=== PATIENT | female | born 1935 | race Caucasian/White ===

== ENCOUNTER 2021-03-02 14:50 | Inpatient (IN) | payer MEDICARE ==
--- NOTE | 2021-03-02 16:53 | NUR ---
Pt arrived to medical unit room 353 by EMS around 1600. A&Ox4. Oriented pt to room and admission assessment complete. Unable to complete med rec at this time as pt is unaware of home medications except for Eliquis, does not know dosage of eliquis however. Attempted to call pt's daughter Delia for med list. No answer at this time. Will try again later.
[2021-03-02 17:00] VITALS: BP 106/42; PULSE 56; TEMP 97.6
[2021-03-02] MEDS ORDERED: ELIQUIS 5MG PO (17:36)
[2021-03-02] MEDS ORDERED: ROXICODONE 55 MG/TAB PO ×2 (17:37→17:38)
[2021-03-02] MEDS ORDERED: MIACALCIN NASA3.7 ML NS (17:39)
[2021-03-02] MEDS ORDERED: TYLENOL 325MG325 MG PO (17:40)
[2021-03-02] MEDS ORDERED: PACERONE200 MG PO (17:41)
[2021-03-02] MEDS ORDERED: ASPIRIN 81M81 MG/TA2 PO (17:41)
[2021-03-02] MEDS ORDERED: LIPITOR 80MG80 MG PO (17:41)
[2021-03-02] MEDS ORDERED: CALCIUM 600MG+D1 TAB PO (17:42)
[2021-03-02] MEDS ORDERED: FERRO-TIME325 MG PO (17:43)
[2021-03-02] MEDS ORDERED: SYNTHROID0.075 MG/T PO (17:43)
[2021-03-02] MEDS ORDERED: TOPROL XL 50MG50 MG PO (17:44)
[2021-03-02] MEDS ORDERED: DINO-LIFE1 CTB PO (17:44)
[2021-03-02] MEDS ORDERED: K-TAB20 PO (17:45)
[2021-03-02] MEDS ORDERED: DEMADEX 20MG20 M1 PO (17:46)
[2021-03-02] MEDS ORDERED: SENOKOT S 50 MG1 TAB PO (17:46)
[2021-03-02] MEDS ORDERED: VITAMIN C500 MG PO (17:46)
[2021-03-02] MEDS ORDERED: NATURAL E400 IU PO (17:47)
--- NOTE | 2021-03-02 18:17 | NUR ---
Pt's daughter brought updated med/allergy list. Med rec updated. Daughter Delia would like to be called during morning rounds. Passed this on to cage shift manager RNRohith Lin to bring in copy of [facility] paperwork tomorrow afternoon.
[2021-03-02 20:04] VITALS: BP 109/41; PULSE 55; TEMP 97.9
[2021-03-02 21:12] LABS: BASO % 0.3 % (0.0-2.0); EOS # 0.1 (0.0-0.7); EOS % 1.3 % (0-4.0); GRAN # 7.8 (1.4-6.5); GRAN % 72.4 % (42.2-75.2); LYMPH # 1.8 (1.2-3.4); LYMPH % 16.4 % (20.0-51.0); MEAN CELL VOLUME 96 fl (80.0-100.0); MEAN CORPUSCULAR HGB CONC 31 g/dl (33.0-37.0); MEAN PLATELET VOLUME 9.5 fl (7.4-10.4); MONO # 0.9 (0.1-0.6); MONO % 8.6 % (1.7-9.3); PLATELET COUNT 208 K/mm3 (130-400); RED BLOOD COUNT 1.59 M/mm3 (4.10-5.30); REDCELL DISTRIBUTION WIDTH-CV 17.7 % (11.5-14.5)
[2021-03-02 21:23] LABS: CALCIUM 8.8 mg/dL (8.4-10.2); CREATININE, serum 2.95 (0.52-1.25)
[2021-03-02 21:37] LABS: IRON,SERUM 79 ug/dL (35-150)
[2021-03-02 21:40] LABS: HEMATOCRIT 15.2 % (37.0-47.0); HEMOGLOBIN 4.7 g/dl (12.5-16.0); MEAN CORPUSCULAR HEMOGLOBIN 30 pg (27.0-31.0)
[2021-03-02 21:46] LABS: TOTAL IRON BINDING CAPACITY 332 ug/dL (265-497)
--- NOTE | 2021-03-02 23:36 | NUR ---
PT BLOOD ADMINISTRATION BEGINS AT 60ML/HR TO RIGHT AC IV. THIS NURSE REVIEWED S/S TO REPORT TO NURSE. PT VERBALIZES UNDERSTANDING. THIS NURSE WILL REMAIN WITH PT FOR FIRST 15MIN.
--- NOTE | 2021-03-02 23:49 | NUR ---
PT TOLERATING BLOOD ADMINSTRATION WELL. BLOOD INFUSING AT 200ML/HR TO RIGHT IV. THIS NURSE WILL CONTINUE TO MONITOR PT. BED ALARM ON. BED LOW. CALL LIGHT WITHIN REACH.
[2021-03-03] VITALS (12 sets, daily range): BP systolic 90–155; BP diastolic 34–71; PULSE 50–65; TEMP 97.5–98.5
--- NOTE | 2021-03-03 01:19 | NUR ---
PT COMPLETED FIRST BLOOD ADMINISTRATION UNIT FREE OF S/S. THIS NURSE WILL CONTINUE TO ADMINISTER 2ND UNIT OF BLOOD AND REITERATE TO PT S/S TO REPORT.
--- NOTE | 2021-03-03 01:39 | NUR ---
SECOND UNIT OF BLOOD ADMINISTRATION BEGINS AT 0139, PT REMAINS A/OXO4 AND AWARE OF WHICH S/S TO REPORT TO NURSE. PT CONTINUES TO RUN SOFT BP'S. NURSE WILL REMAIN WITH PT FIRST 15 MIN.
--- NOTE | 2021-03-03 02:00 | NUR ---
PT TOLERATING 2ND UNIT OF BLOOD ADMINISTRATION WELL, BLOOD ADMINISTERING TO LEFT AC AT 200ML/HR. NURSE WILL CONTINUE TO F/U
--- NOTE | 2021-03-03 02:29 | NUR ---
AT 0230 03/03 THIS NURSE FAXED OVER MEDICAL RECORDS REQUESTS TO [facility]. FAX SHEET PLACED IN PT'S CHART.
--- NOTE | 2021-03-03 03:25 | NUR ---
PT TOLERATED 2ND UNIT OF BLOOD WITHOUT S/S. NURSE WILL CONTINUE TO MONITOR PT. CALL LIGHT WITHIN REACH.
[2021-03-03 05:35] LABS: BASO # 0.1 (0.0-0.2); BASO % 0.5 % (0.0-2.0); EOS # 0.1 (0.0-0.7); EOS % 1.5 % (0-4.0); GRAN # 6.8 (1.4-6.5); GRAN % 73.1 % (42.2-75.2); LYMPH # 1.5 (1.2-3.4); LYMPH % 16.1 % (20.0-51.0); MEAN CELL VOLUME 94 fl (80.0-100.0); MEAN CORPUSCULAR HGB CONC 32 g/dl (33.0-37.0); MEAN PLATELET VOLUME 9.2 fl (7.4-10.4); MONO # 0.7 (0.1-0.6); MONO % 7.9 % (1.7-9.3); PLATELET COUNT 210 K/mm3 (130-400); RED BLOOD COUNT 2.75 M/mm3 (4.10-5.30); REDCELL DISTRIBUTION WIDTH-CV 15.9 % (11.5-14.5)
[2021-03-03 05:37] LABS: HEMATOCRIT 25.9 % (37.0-47.0); HEMOGLOBIN 8.3 g/dl (12.5-16.0); MEAN CORPUSCULAR HEMOGLOBIN 30 pg (27.0-31.0)
[2021-03-03 05:45] LABS: CREATININE, serum 2.88 (0.52-1.25); MAGNESIUM 2.3 mg/dL (1.6-2.3); POTASSIUM 4.1 mmol/L (3.4-5.0)
[2021-03-03 06:14] LABS: TROPONIN-I 6 HR POST INITIAL 0.111 ng/mL (0.000-0.034)
--- NOTE | 2021-03-03 11:03 | NUR ---
SHIFT ASSESSMENT PREFORMED. SCHEDULED MEDICATIONS NOT GIVEN DUE TO EGD SCHEDULED AT 1300. CONSENT SIGNED AND ON THE CHART. PATIENT CONTINUES TO HAVE BLACK TARRY STOOLS. PATIENT DENIES ANY PAIN, DISCOMFORT, OR FURTHER NEEDS AT THIS TIME. VSS. PATIENT A&O. CALL LIGHT IN REACH. FALL PRECAUTIONS IN PLACE.
--- NOTE | 2021-03-03 11:05 | NUR ---
First visit from the obstetrics scrub nurse. No needs right now.
[2021-03-03 11:53] LABS: COLLECTION METHOD CLEAN CATCH
[2021-03-03 12:02] LABS: PH 5 (5-8); SQUAMOUS EPITHELIAL 0-2 /hpf; URINE APPEARANCE Hazy; URINE BACTERIA Rare /hpf; URINE BILIRUBIN Negative (NEGATIVE); URINE BLOOD Negative (NEGATIVE); URINE COLOR Yellow; URINE GLUCOSE Negative (NEGATIVE); URINE KETONE Negative (NEGATIVE); URINE LEUKOCYTE ESTERASE 2+ (NEGATIVE); URINE NITRATE Negative (NEGATIVE); URINE PROTEIN(semi-quant) Negative (NEGATIVE); URINE RBC 0-2 /hpf; URINE UROBILINOGEN Negative (NEGATIVE)
--- NOTE | 2021-03-03 16:27 | NUR ---
group home worker met with patient to discuss discharge plan. Patient lives at home alone in [place] and reports to being independent on all activities of daily living. Patient uses a walker to get mobilize. [facility] is Dr[facility] Patient's daughter Delia at bedside. Neither have concerns with the patient returning back home. Patient reports that she does have a DPOA-HC established and that the hospital should have it. *Discharge Plan:Home*
--- NOTE | 2021-03-03 19:24 | NUR ---
PATIENT HAS HAD AN OK DAY. EGD COMPLETED, PATIENT TOLERATED WELL. DISCUSSED WITH PHARMACY THE USE OF ROCHEPHIN ON PATIENT, PHARMACY APPROVED USE. PATIENT HAS NOT C/O OF ANY PAIN, DISCOMFORT, OR FURTHER NEEDS AT THIS TIME. CALL LIGHT IN REACH. FALL PRECAUTIONS IN PLACE. VSS.
[2021-03-03 20:21] LABS: CREATININE, serum 2.43 (0.52-1.25); FRACTIONAL EXCRETION OF NA+ 1.5 %
--- NOTE | 2021-03-03 22:11 | NUR ---
Shift assessment completed. Patient alert and oriented. Patient reports feeling very tired. Patient denies pain, SOB, N/V, or diarrhea. Assisted patient to the bathroom to void. Patient ambulates with a walker. Stand-by assist provided. Scheduled meds given per MAR. Call light within reach. Fall precaution maintained.
[2021-03-04 00:11] VITALS: BP 99/40; PULSE 57; TEMP 98
[2021-03-04 03:42] VITALS: BP 124/45; PULSE 63; TEMP 97.7
--- NOTE | 2021-03-04 05:46 | NUR ---
Patient had black tarry stools x3 over the night. Call light within reach. Will continue to monitor.
[2021-03-04 07:40] VITALS: BP 113/37; PULSE 62; TEMP 98.3
[2021-03-04 07:44] LABS: BASO # 0.1 (0.0-0.2); BASO % 0.5 % (0.0-2.0); EOS # 0.4 (0.0-0.7); GRAN # 7.6 (1.4-6.5); GRAN % 75.5 % (42.2-75.2); LYMPH # 0.8 (1.2-3.4); LYMPH % 8.4 % (20.0-51.0); MEAN CELL VOLUME 97 fl (80.0-100.0); MEAN CORPUSCULAR HGB CONC 31 g/dl (33.0-37.0); MEAN PLATELET VOLUME 9.2 fl (7.4-10.4); MONO # 1.1 (0.1-0.6); MONO % 10.9 % (1.7-9.3); PLATELET COUNT 198 K/mm3 (130-400); RED BLOOD COUNT 2.33 M/mm3 (4.10-5.30); REDCELL DISTRIBUTION WIDTH-CV 16.6 % (11.5-14.5)
[2021-03-04 07:46] LABS: HEMATOCRIT 22.6 % (37.0-47.0); MEAN CORPUSCULAR HEMOGLOBIN 30 pg (27.0-31.0)
[2021-03-04 07:58] LABS: CALCIUM 8.4 mg/dL (8.4-10.2); CREATININE, serum 2.27 (0.52-1.25); MAGNESIUM 2.1 mg/dL (1.6-2.3); POTASSIUM 3.6 mmol/L (3.4-5.0)
[2021-03-04 08:25] LABS: TROPONIN-I 0.073 ng/mL (0.000-0.035)
[2021-03-04 11:48] VITALS: BP 131/47; PULSE 64; TEMP 98.5
--- NOTE | 2021-03-04 16:22 | NUR ---
animal care service worker met with patient and left message for daughter, Delia, to call regarding physical therapy recommending home health. Patient continues plans to return home upon discharge. Patient uses a walker at home.
[2021-03-04 16:31] LABS: HEMATOCRIT 23.1 % (37.0-47.0); HEMOGLOBIN 7.3 g/dl (12.5-16.0)
[2021-03-04 16:58] VITALS: BP 133/43; PULSE 64; TEMP 97.7
--- NOTE | 2021-03-04 20:04 | NUR ---
PATIENT HAS HAD AN OK DAY. 2 EPISODES OF BLOODY STOOLS NOTED. HGB THIS AM WAS 7.0, ORDERS FOR A BLOOD TRANSFUSION PLACED. CONSENT SIGNED AND ON THE CHART. PATIENT TO HAVE A COLONOSCOPY IN THE AM. BOWEL PREP STARTED. PATIENT HAS DENIED ANY PAIN, DISCOMFORT, OR FURTHER NEEDS AT THIS TIME VSS. CALL LIGHT IN REACH. FALL PRECAUTIONS IN PLACE.
[2021-03-04 22:29] LABS: HEMATOCRIT 25.4 % (37.0-47.0); HEMOGLOBIN 8.1 g/dl (12.5-16.0)
--- NOTE | 2021-03-04 23:47 | NUR ---
Patient scheduled for Colonoscopy in the morning. Patient currently on bowel prep over the night. Has been using bedside commode frequently. VS stable. Call light within reach. Will continue to monitor.
[2021-03-05] VITALS (12 sets, daily range): BP systolic 103–167; BP diastolic 39–95; PULSE 57–71; TEMP 97.5–98.4
--- NOTE | 2021-03-05 04:24 | NUR ---
Patient has been on bowel prep and using bedside commode throughout the night. Stool is completely liquid. Hgb was 8.1 at 22:10 pm last night. Not able to give unit of RBC due to listed as autologus. Made KARI Blevins aware. Per KARI Blevins, sine patient's hgb level is improving, will wait until morning lab draw and then decide blood transfusion.
[2021-03-05 07:39] LABS: CALCIUM 8.2 mg/dL (8.4-10.2); CREATININE, serum 1.85 (0.52-1.25); POTASSIUM 3.7 mmol/L (3.4-5.0)
[2021-03-05 07:41] LABS: BASO # 0.1 (0.0-0.2); BASO % 0.6 % (0.0-2.0); EOS # 0.4 (0.0-0.7); EOS % 4.8 % (0-4.0); GRAN % 66.7 % (42.2-75.2); LYMPH # 1.2 (1.2-3.4); LYMPH % 13.5 % (20.0-51.0); MEAN CELL VOLUME 94 fl (80.0-100.0); MEAN CORPUSCULAR HGB CONC 33 g/dl (33.0-37.0); MEAN PLATELET VOLUME 9.4 fl (7.4-10.4); MONO # 1.2 (0.1-0.6); MONO % 13.5 % (1.7-9.3); PLATELET COUNT 177 K/mm3 (130-400); RED BLOOD COUNT 2.09 M/mm3 (4.10-5.30); REDCELL DISTRIBUTION WIDTH-CV 16.7 % (11.5-14.5)
[2021-03-05 07:44] LABS: HEMATOCRIT 19.7 % (37.0-47.0); HEMOGLOBIN 6.4 g/dl (12.5-16.0); MEAN CORPUSCULAR HEMOGLOBIN 31 pg (27.0-31.0)
--- NOTE | 2021-03-05 08:40 | NUR ---
CALLED LAB ABOUT BLOOD TRANSFUSION. LAB REPORTED UNIT OF BLOOD WAS ORDERED INCORRECTLY AUTOLOGUS. ORDER REVISED. BLOOD BANK TO CALL WHEN UNIT IS READY SO NURSING CAN TRANSFUSE KAYLA BEFORE SCHEDULED PROCEDURE TODAY.
--- NOTE | 2021-03-05 09:12 | NUR ---
STARTING BLOOD TRANSFUSION PER ORDERS. AM HGB OF 6.4 AND PATIENT HAS SCHEDULED COLONOSCOPY THIS AM. HOSPITALIST TEAM ROUNDING.
--- NOTE | 2021-03-05 09:20 | NUR ---
PATIENT ASSISTED TO COMMODE AND HAD LIQUID BLOOD TINGED STOOL WITH DARK SEDIMENT NOTED. PATIENT ENCOURAGED TO KEEP DRINKING BOWL PREP PER
--- NOTE | 2021-03-05 09:27 | NUR ---
PATIENT TOLERATING TRANSFUSION WELL. INCREASED BLOOD TRANSFUSION RATE PER PROTOCOL. VSS. CALL LIGHT IN REACH. WILL MONITOR
--- NOTE | 2021-03-05 13:23 | NUR ---
PATIENT GOING DOWN VIA CART TO ENDO. CONSENT ON CHART. IV FLUIDS INFUSING VIA GRAVITY.
--- NOTE | 2021-03-05 15:30 | NUR ---
ALEX JONES TAKING OVER PATIENT'S CARE. REPORT GIVEN.
[2021-03-05 17:01] LABS: HEMATOCRIT 28.5 % (37.0-47.0)
--- NOTE | 2021-03-05 18:19 | NUR ---
Patient sitting up in bed eating dinner. A&Ox3. VSS. IV CDI. Denies pain, reports some discomfort in left shoulder. No further needs expressed. Call light within reach. Bed alarm on
--- NOTE | 2021-03-05 21:00 | NUR ---
Patient assessed around 193. Alert and oriented, and able to make needs known. Denies pain and discomfort. IV fluids running to peripheral IV to left AC per orders. Denies SOB and dyspnea, except with exertion. . LS CTA. On room air. Respirations even and unlabored. BSAx4. Abdomen soft and non-tender. Redness to groin. 2+ edema to BLE. Voices no questions, needs, or concerns at this time. Resting in bed with call light within reach.
[2021-03-06] VITALS (11 sets, daily range): BP systolic 121–162; BP diastolic 45–66; PULSE 57–63; TEMP 97.4–98.8
--- NOTE | 2021-03-06 06:08 | NUR ---
Patient has been resting in bed with call light within reach. Has denied having pain and discomfort this shift. Voices no questions, needs, or concerns at this time.
[2021-03-06 07:03] LABS: BASO % 0.5 % (0.0-2.0); EOS # 0.4 (0.0-0.7); EOS % 4.9 % (0-4.0); GRAN # 5.7 (1.4-6.5); GRAN % 69.3 % (42.2-75.2); HEMATOCRIT 23.2 % (37.0-47.0); HEMOGLOBIN 7.2 g/dl (12.5-16.0); LYMPH # 0.8 (1.2-3.4); LYMPH % 10.3 % (20.0-51.0); MEAN CELL VOLUME 97 fl (80.0-100.0); MEAN CORPUSCULAR HEMOGLOBIN 30 pg (27.0-31.0); MEAN CORPUSCULAR HGB CONC 31 g/dl (33.0-37.0); MEAN PLATELET VOLUME 9.4 fl (7.4-10.4); MONO # 1.2 (0.1-0.6); MONO % 14.1 % (1.7-9.3); PLATELET COUNT 172 K/mm3 (130-400); RED BLOOD COUNT 2.39 M/mm3 (4.10-5.30); REDCELL DISTRIBUTION WIDTH-CV 16.2 % (11.5-14.5)
[2021-03-06 07:13] LABS: CALCIUM 8.1 mg/dL (8.4-10.2); CREATININE, serum 1.64 (0.52-1.25); POTASSIUM 3.4 mmol/L (3.4-5.0)
--- NOTE | 2021-03-06 08:28 | NUR ---
Pt assessment complete. Pt is up to the restroom with SBA and walker. Denies any pain at this time. Denies N/V. Breakfast ordered. Pt up to the chair at this time. Call light within reach.
--- NOTE | 2021-03-06 15:29 | NUR ---
Unit of blood started at this time. Protocol followed. This nurse will remain at bedside for the first fifteen minutes of transfusion.
[2021-03-06 19:21] LABS: HEMATOCRIT 29.1 % (37.0-47.0); HEMOGLOBIN 9.3 g/dl (12.5-16.0)
--- NOTE | 2021-03-07 | NUR ---
PT ALERT AND ORIENTED UPON ASSESSMENT. 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 PT FEET BLUE/PURPLE DISCOLORATION, CAP REFILL <3S AND PULSES IN POSTERIOR TIBIAL AND DORSALIS PEDIS 2+ BILATERALLY. PT DENIES PAIN AT THIS TIME. PT UP IN CHAIR, PT CALL LIGHT WITHIN REACH.
[2021-03-07 00:48] VITALS: BP 109/53; PULSE 53; TEMP 98.5
--- NOTE | 2021-03-07 01:41 | NUR ---
BACK CHARTING. NOTIFIED SHERMAN TRIPLETT NP OF HBG LEVEL AT 2200. WILL CONTINUE TO MONITOR, RECHECK AT 0500.
[2021-03-07 03:18] VITALS: BP 128/47; PULSE 53; TEMP 98.3
--- NOTE | 2021-03-07 03:23 | NUR ---
PT DIASTOLIC BP AT 47. THIS RN EVALUATED TRENDS, SIMILAR VALUES AT THIS TIME DURING OTHER NIGHTS. WILL CONTINUE TO MONITOR. NO FURTHER ACTION AT THIS TIME. PT AMBULATED TO BATHROOM, FALL PRECAUTIONS OBSERVED. PT TOLERATED ACTIVITY WELL.
--- NOTE | 2021-03-07 05:36 | NUR ---
PT CONTINUING ON PLAN OF CARE. PT DENIED PAIN THIS SHIFT, ABLE TO REST IN BED. PT ABLE TO AMUBATE TO RESTROOM, TOLERATED ACTIVITY WELL. PT ABLE TO CONVERSE FREELY AND EXPRESS NEEDS. PT FREE FROM INJURY THIS SHIFT.
[2021-03-07 06:49] LABS: BASO % 0.5 % (0.0-2.0); EOS # 0.4 (0.0-0.7); EOS % 4.8 % (0-4.0); GRAN # 6.2 (1.4-6.5); LYMPH # 1.1 (1.2-3.4); LYMPH % 12.4 % (20.0-51.0); MEAN CELL VOLUME 96 fl (80.0-100.0); MEAN CORPUSCULAR HGB CONC 32 g/dl (33.0-37.0); MEAN PLATELET VOLUME 9.4 fl (7.4-10.4); MONO % 11.7 % (1.7-9.3); PLATELET COUNT 176 K/mm3 (130-400); RED BLOOD COUNT 2.79 M/mm3 (4.10-5.30); REDCELL DISTRIBUTION WIDTH-CV 16.1 % (11.5-14.5)
[2021-03-07 06:51] LABS: CALCIUM 8.2 mg/dL (8.4-10.2); CREATININE, serum 1.58 (0.52-1.25); POTASSIUM 4.1 mmol/L (3.4-5.0)
[2021-03-07 06:52] LABS: HEMATOCRIT 26.8 % (37.0-47.0); HEMOGLOBIN 8.5 g/dl (12.5-16.0); MEAN CORPUSCULAR HEMOGLOBIN 30 pg (27.0-31.0)
[2021-03-07 07:30] VITALS: BP 153/53; PULSE 60; TEMP 98.2
--- NOTE | 2021-03-07 08:16 | NUR ---
Assessment completed, alert/oriented, vital signs stable, denies pain or discomfort, hemaglobin 8.5 this morning whic is down from 9.3 yesterday after having received blood transfusion, denies any bloody stools or overt bleeding, heart RRR/ SR on tele, lungs CTA/ no resp.difficulty, she is sitting at side of the bed eating her breakfast, hopeful to go home today, denies needs from me at this time, will continue to monitor
[2021-03-07 12:04] VITALS: BP 137/48; PULSE 60; TEMP 98.2
--- NOTE | 2021-03-07 15:37 | NUR ---
[facility] advise that they are not a provider for Medicare [employer]. Worker confirmed that [facility] are providers. utility worker [employer] met with patient and daughter and advised of the above information. Patient chose [facility] and worker gave a referral. Will await acceptance by [facility].
--- NOTE | 2021-03-07 15:51 | NUR ---
[facility] state they cannot accept due to staffing. Worker gave a referral to [facility] and will await their screening.
[2021-03-07 16:03] VITALS: BP 140/47; PULSE 57; TEMP 97.6
[2021-03-07 21:00] VITALS: BP 139/50; PULSE 59; TEMP 98.4
--- NOTE | 2021-03-07 23:18 | NUR ---
PT RESTING IN BED. EVENING MEDICATIONS GIVEN. PT HAS 3+ PITTING EDEMA TO BLE. PT DENIES ANY NEEDS AT THIS TIME. WILL CONTINUE TO MONITOR.
[2021-03-08 00:11] VITALS: BP 114/49; PULSE 56; TEMP 97.9
[2021-03-08 04:01] VITALS: BP 126/51; PULSE 54; TEMP 98.1
--- NOTE | 2021-03-08 06:08 | NUR ---
PT HAD A RESTFUL NIGHT. DENIES ANY NEEDS AT THIS TIME. WILL CONTINUE TO MONITOR.
[2021-03-08 06:57] LABS: BASO % 0.6 % (0.0-2.0); EOS # 0.5 (0.0-0.7); EOS % 6.3 % (0-4.0); GRAN # 4.8 (1.4-6.5); GRAN % 65.5 % (42.2-75.2); LYMPH % 13.4 % (20.0-51.0); MEAN CELL VOLUME 95 fl (80.0-100.0); MEAN CORPUSCULAR HGB CONC 32 g/dl (33.0-37.0); MEAN PLATELET VOLUME 9.3 fl (7.4-10.4); MONO % 13.4 % (1.7-9.3); PLATELET COUNT 181 K/mm3 (130-400); RED BLOOD COUNT 2.73 M/mm3 (4.10-5.30); REDCELL DISTRIBUTION WIDTH-CV 16.1 % (11.5-14.5)
[2021-03-08 06:58] LABS: HEMATOCRIT 25.8 % (37.0-47.0); HEMOGLOBIN 8.2 g/dl (12.5-16.0); MEAN CORPUSCULAR HEMOGLOBIN 30 pg (27.0-31.0)
[2021-03-08 07:05] LABS: CREATININE, serum 1.44 (0.52-1.25); POTASSIUM 4.1 mmol/L (3.4-5.0)
[2021-03-08 07:38] VITALS: BP 150/59; PULSE 60; TEMP 98
--- NOTE | 2021-03-08 08:00 | NUR ---
Patient sitting up in bed watching TV. A&Ox4. VSS. IV CDI. Denies pain and discomfort. Is wanting to go home today. Waiting on doctors to round. No further needs expressed from the patient. Call light within reach. Bed alarm on
--- NOTE | 2021-03-08 12:05 | NUR ---
JUD recieved notification of Discharge. JUD faxed DC order and face sheet to [facility]. JUD called and faxed forms to . on call will call back to talk about admission time. NF>
--- NOTE | 2021-03-08 12:18 | NUR ---
JUD received call from [facility] and they can admit on Saturday 03/10. ARJUN.
--- NOTE | 2021-03-08 13:30 | NUR ---
Patient taken by wheelchair to the ER entrance by nursing staff. Daughter with the patient. Discharge paperwork and personal belongings with the patient. Patient verbalized an understanding to follow doctors orders. No further needs expressed.
== END 2021-03-08 13:30 | disposition home health service (06) | DRG 377 ==
LOC: MEDICAL 14:50
PROVIDERS: Internal Medicine; Internal Medicine Gastroenterology; Physician Assistant; ADMIT Internal Medicine
PROC: 0DB68ZX Excision of Stomach, Via Natural or Artificial Opening Endoscopic, Diagnostic (ICD-10-PCS; 2021-03-03)
PROC: 0W3P8ZZ Control Bleeding in Gastrointestinal Tract, Via Natural or Artificial Opening Endoscopic (ICD-10-PCS; principal; 2021-03-03 13:00)
DX: K55.21 Angiodysplasia of colon with hemorrhage (principal); I21.A1 Myocardial infarction type 2; N39.0 Urinary tract infection, site not specified; E87.2 Acidosis; N17.9 Acute kidney failure, unspecified; D62 Acute posthemorrhagic anemia; B96.20 Unspecified Escherichia coli [E. coli] as the cause of diseases classified elsewhere; N18.30 Chronic kidney disease, stage 3 unspecified; E78.5 Hyperlipidemia, unspecified; I48.91 Unspecified atrial fibrillation; G72.9 Myopathy, unspecified; K29.70 Gastritis, unspecified, without bleeding; Z20.822 Contact with and (suspected) exposure to COVID-19; E87.8 Other disorders of electrolyte and fluid balance, not elsewhere classified; I25.10 Atherosclerotic heart disease of native coronary artery without angina pectoris; Z95.818 Presence of other cardiac implants and grafts; Z86.718 Personal history of other venous thrombosis and embolism; Z90.49 Acquired absence of other specified parts of digestive tract; Z85.038 Personal history of other malignant neoplasm of large intestine
CPT/HCPCS: 99223-AI; 99232-AI; 99233-AI; 99239; C9113; J0696; J2704; J7030; J7120; P9016